=== PATIENT | male | born 1990 | race American Indian/Alaskan Native ===

== ENCOUNTER 2017-12-20 12:46 | Emergency (ER) | payer SELFPAY ==
[2017-12-20] MEDS ORDERED: ASPIRIN PO ONE (13:04)
[2017-12-20 13:05] VITALS: BP 126/80
[2017-12-20 14:00] LABS: Basophils % (Auto) 0.5 % (0.0-1.8); Eosinophils # (Auto) 0.2 K/mm3 (0.0-0.4); Eosinophils % (Auto) 3.6 % (0.0-4.3); Hemoglobin 13.8 gm/dl (11.8-15.2); Lymphocytes % (Auto) 33.3 % (13.4-35.0); Mean Corpuscular HGB Conc 32 % (32-34); Mean Corpuscular Hemoglobin 24 pg (28-32); Mean Corpuscular Volume 75 fl (84-94); Monocytes # (Auto) 0.5 K/mm3 (0.0-0.8); Monocytes % (Auto) 9.3 % (0.0-7.3); Platelet Count 219 K/mm3 (140-440); Red Blood Count 5.74 M/mm3 (3.65-5.03); Red Cell Distribution Width 14.3 % (13.2-15.2)
[2017-12-20 14:28] LABS: BUN/Creatinine Ratio 16; Blood Urea Nitrogen 11 mg/dL (9-20); Calcium 9.5 mg/dL (8.4-10.2); Hemolysis Index 16
== END 2017-12-20 17:00 | disposition left against medical advice (07) ==
LOC: ED 12:46
DX: R07.9 Chest pain, unspecified (principal); Z53.21 Procedure and treatment not carried out due to patient leaving prior to being seen by health care provider
CPT/HCPCS: 36415; 80048; 84484; 85025; 93005; 93010